=== PATIENT | male | born 1985 | race Asian ===

== ENCOUNTER 2018-04-18 12:26 | Emergency (ER) | payer BC ==
[2018-04-18 12:50] VITALS: BP 94/63
--- NOTE | 2018-04-18 13:06 | UC ---
Upper Extremity HPI - HPI Summary HPI Summary: He is a left handed male with left elbow pain. He points directly in the middle of the antecubital fosa. No acute injury or trauma. 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 It has been hurting more for the last 6mo. He works out daily but does not have pain during the workouts. It hurts more throwing and certain positions of the left arm. - History of Current Complaint Chief Complaint: UCUpperExtremity Stated Complaint: LEFT ELBOW PAIN Time Seen by Provider: 04/18/18 12:51 Hx Obtained From: Patient Onset/Duration: Gradual Onset, Lasting Weeks Severity Initially: Mild Severity Currently: Moderate Pain Intensity: 9 Location Of Pain: Is Discrete @ - anterior left elbow. Character: Aching Aggravating Factor(s): Other - certain positions. Alleviating Factor(s): Rest Associated Signs And Symptoms: Positive: Negative Related History: Dominant Hand Left - Allergies/Home Medications Allergies/Adverse Reactions: Allergies Allergy/AdvReac Type Severity Reaction Status Date / Time No Known Allergies Allergy Verified 04/18/18 12:47 Home Medications: Home Medications NK [No Home Medications Reported] 04/18/18 [History Confirmed 04/18/18] PMH/Surg Hx/FS Hx/Imm Hx Previously Healthy: Yes - Surgical History Surgical History: None - Family History Known Family History: Positive: Other - no related elbow disease in the family. - Social History Occupation: Student Alcohol Use: Rare Substance Use Type: None Smoking Status (MU): Never Smoked Tobacco Review of Systems Motor: Other - pain. All Other Systems Reviewed And Are Negative: Yes Physical Exam Triage Information Reviewed: Yes Appearance: Well-Appearing, No Pain Distress, Well-Nourished Vital Signs: Initial Vital Signs Temp 98.3 F 04/18/18 12:43 Pulse 55 04/18/18 12:43 Resp 15 04/18/18 12:43 BP 94/63 04/18/18 12:43 Pulse Ox 100 04/18/18 12:43 Vital Signs Reviewed: Yes Eyes: Positive: Conjunctiva Clear ENT: Positive: Normal ENT inspection Neck: Positive: Supple, Nontender, No Lymphadenopathy Respiratory: Positive: No accessory muscle use. Negative: Respiratory distress Cardiovascular: Positive: Brisk Capillary Refill Abdomen Description: Negative: Distended Musculoskeletal Exam: Other - Left elbow full rom, no deformity, bruising or swelling. There is no linda tenderness. Intact hook sign. No pain with valgus and varus stress. No pain with supination or pronation. Neurological: Positive: Alert, Muscle Tone Normal. Negative: Fatigued Psychological: Positive: Age Appropriate Behavior Upper Extremity Course/Dx - Course Course Of Treatment: This is not c/w tennis elbow, golfers elbow, biceps tendonitis, bursitis. He will f/u with Dr. motley. - Differential Dx/Diagnosis Provider Diagnoses: elbow pain. Discharge - Sign-Out/Discharge Documenting (check all that apply): Patient Departure - Discharge Plan Condition: Good Disposition: HOME Patient Education Materials: Elbow Sprain (ED) Referrals: No Primary Care Phys,NOPCP [Primary Care Provider] - Epi Motley MD [Medical Doctor] - - Billing Disposition and Condition Condition: GOOD Disposition: Home
== END 2018-04-18 13:04 | disposition home or self-care (01) ==
LOC: UCCORT 12:26
DX: M25.522 Pain in left elbow (principal)
CPT/HCPCS: 99211; G0463

== ENCOUNTER 2019-08-26 13:49 | Emergency (ER) | payer BC ==
[2019-08-26 14:16] VITALS: BP 130/85
--- NOTE | 2019-08-26 14:33 | UC ---
Dizzy HPI HPI Summary: Pt presents with c/o sudden onset of SMITH, dizziness, chest palpitations, after doing his morning workout. Pt states he began with a headache, he took a tylenol , ate lunch then began to feel nauseated and vomited several times. Pt states that he feels better now. Denies nausea, dizziness and chest palpitations, . Reports that he has a mild SMITH now. - History Of Current Complaint Chief Complaint: UCGeneralIllness Stated Complaint: DIZZY HEADACHE VOMITING HEART RACING Time Seen by Provider: 08/26/19 14:21 Hx Obtained From: Patient Onset/Duration: Sudden Onset, Lasting Minutes, Resolved Timing: Constant Severity Initially: Moderate Severity Currently: None Pain Intensity: 5 Character: Lightheaded, Dizzy Aggravating Factor(s): Headache Alleviating Factor(s): Rest Associated Signs And Symptoms: Positive: Nausea, Vomiting, Palpitations - Risk Factors Cardiac Risk Factors: Negative CVA Risk Factor: Negative - Allergies/Home Medications Allergies/Adverse Reactions: Allergies Allergy/AdvReac Type Severity Reaction Status Date / Time No Known Allergies Allergy Verified 08/26/19 13:56 Home Medications: Home Medications Baractamol 08/26/19 [History] Dymatize Protien Supplement 08/26/19 [History] Medication For Dormant Tb DAILY 08/26/19 [History] PMH/Surg Hx/FS Hx/Imm Hx Previously Healthy: Yes - Surgical History Surgical History: None Surgery Procedure, Year, and Place: DENIES - Family History Known Family History: Positive: Other - no related elbow disease in the family. - Social History Occupation: Employed Full-time Lives: With Family Alcohol Use: Rare Substance Use Type: None Smoking Status (MU): Never Smoked Tobacco Have You Smoked in the Last Year: No Review of Systems All Other Systems Reviewed And Are Negative: Yes Constitutional: Positive: Negative Skin: Positive: Negative Eyes: Positive: Negative ENT: Positive: Negative Respiratory: Positive: Negative Cardiovascular: Positive: Palpitations Gastrointestinal: Positive: Vomiting, Nausea Genitourinary: Positive: Negative Motor: Positive: Negative Neurovascular: Positive: Negative Musculoskeletal: Positive: Negative Neurological: Positive: Headache Psychological: Positive: Negative Is Patient Immunocompromised?: No Physical Exam - Summary Physical Exam Summary: Pt was sitting on exam bed a&o X 3 no one sided weakness, color was pink warm and dry. no neurological deficits. Triage Information Reviewed: Yes Appearance: Well-Appearing Vital Signs: Initial Vital Signs Temp 97.4 F 08/26/19 13:59 Pulse 75 08/26/19 13:59 Resp 16 08/26/19 13:59 BP 130/85 08/26/19 13:59 Pulse Ox 100 08/26/19 13:59 Vital Signs Reviewed: Yes ENT Exam: Normal ENT: Positive: Normal ENT inspection Dental Exam: Normal Neck exam: Normal Respiratory Exam: Normal Respiratory: Positive: Lungs clear, Normal breath sounds Cardiovascular Exam: Normal Cardiovascular: Positive: RRR, No Murmur Musculoskeletal Exam: Normal Musculoskeletal: Positive: Strength Intact, ROM Intact Neurological Exam: Normal Neurological: Positive: Alert, Muscle Tone Normal Psychological Exam: Normal Dizzy Course/Dx - Differential Dx/Diagnosis Differential Diagnosis/HQI/PQRI: Benign Paroxysmal Positional Vertigo, Vasovagal Reaction Provider Diagnosis: Nausea & vomiting, Palpitations, Dizziness Discharge ED - Sign-Out/Discharge Documenting (check all that apply): Patient Departure All imaging exams completed and their final reports reviewed: No Studies - Discharge Plan Condition: Stable Disposition: HOME Patient Education Materials: Acute Nausea and Vomiting (ED), Lightheadedness ( ED) Referrals: Zeina Hooks NP [Nurse Practitioner] - As Soon As Possible Additional Instructions: Please follow up with your PCP as soon as possible. If your symptoms return or worsen, please seek care at the closest emergency room. - Billing Disposition and Condition Condition: STABLE Disposition: Home
--- OUTSIDE RECORDS SUMMARY | 2019-08-26 14:46 | XMS REPORT | Continuity of Care Document ---
:1985 External Reference #:[id number] Author Name Lucille Mosher M.D. Address [address] [place] [address] Care Team Providers Name Role Phone Zeina Hooks, PNP-BC, [employer], Ibclc Care Team Information Conceptor - Family Problems Active Problems Provider Date Vitiligo Lucille Mosher M.D. Onset: 07/22/2019 Acute upper respiratory infection Lucille Mosher M.D. Onset: 06/24/2019 Elevated levels of transaminase & lactic acid Lucille Mosher M.D. Onset: 2018 dehydrogenase Benign paroxysmal positional vertigo Lucille Mosher M.D. Onset: 04/03/2019 Noncompliance with treatment Lucille Mosher M.D. Onset: 03/04/2019 Abnormal reaction to tuberculin test Lucille Mosher M.D. Onset: 01/30/2019 Hyperlipidemia Lucille Mosher M.D. Onset: 01/30/2019 Social History Type Date Description Comments Sex Unknown Tobacco Use Start: Unknown End: Former Cigarette Smoker 1-5 Unknown Cigarettes Daily Smoking Status Reviewed: 07/22/19 Former Cigarette Smoker 1-5 Cigarettes Daily ETOH Use Occasionally consumes alcohol Tobacco Use Start: Unknown End: Patient is a former smoker Unknown Recreational Drug Use Denies Drug Use Allergies, Adverse Reactions, Alerts Description No Known Drug Allergies Medications Active Medications SIG Qnty Indications Ordering Provider Date Ketoconazole apply daily to 60gm L21.9 Zeina Hooks, 05/01/2019 2% Cream arm pits for PNP-BC, [employer], Ibclc 4-6 weeks Isoniazid take one tab by 30tabs R76.11 Lucille Mosher M.D. 01/30/2019 300mg Tablets mouth daily x 30 days Pyridoxine HCL take one tab by 30tabs R76.11 Lucille Mosher M.D. 01/30/2019 50mg mouth daily x Tablets 30 days Immunizations CPT Code Status Date Vaccine Reaction Lot # 64881 Given 04/03/2019 Hepatitis B Vaccine Adult tolerated well, bandaid [id number] applied 79261 Given 03/04/2019 Hepatitis B Vaccine Adult tolerated well, banc aid [id number] applied 82604 Given 10/03/2018 Influenza Virus Vaccine, Quadrivalent, 36 Mos+, .5ML 43950 Given 02/05/2016 Tdap injection U-HepA Given 02/11/1994 Hepatitis A,Unspecified U-HepA Given 03/21/1993 Hepatitis A,Unspecified 81807 Given 01/15/1992 Varicella (Chicken Pox) Vaccine 69003 Given 11/16/1991 MMR Vaccine, Live, For Subcutaneous Use U-MCV4 Given 11/24/1989 Meningococcal MCV4,Unspecified 43133 Given 01/25/1988 MMR Vaccine, Live, For Subcutaneous Use 63632 Given 12/15/1987 Varicella (Chicken Pox) Vaccine U-HepB Given 11/11/1987 Hepatitis B,Unspecified U-HepB Given 07/01/1987 Hepatitis B,Unspecified U-HepB Given 04/22/1987 Hepatitis B,Unspecified Vital Signs Date Vital Result Comment 07/22/2019 3:51pm BP Systolic Sitting Left Arm 141 mmHg BP Diastolic Sitting Left Arm 95 mmHg Body Temperature 97.7 F Heart Rate 82 /min Height 67 inches 5'7" Weight 217.00 lb BMI (Body Mass Index) 34.0 kg/m2 BSA (Body Surface Area) 2.09 m2 [place] body weight in kilograms 67 kg 06/24/2019 3:58pm BP Systolic Sitting Left Arm 131 mmHg BP Diastolic Sitting Left Arm 85 mmHg Body Temperature 98.4 F Heart Rate 95 /min Height 67 inches 5'7" Weight 218.00 lb BMI (Body Mass Index) 34.1 kg/m2 BSA (Body Surface Area) 2.10 m2 [place] body weight in kilograms 67 kg Results Test Date Facility Test Result H/L Range Note CBC 07/15/2019 [facility] White Blood 10.5 K/uL Normal 3.4-10.5 1 W/Automated [address] [place] [address] [phone] Red Blood Count 5.90 M/uL High 4.20-5.80 Hemoglobin 16.7 gm/dL Normal 12.8-17.0 Hematocrit 47.2 % Normal 38.0-48.0 Mean Cell Volume 80.0 fl Normal 80.0-96.0 Mean Corpuscular HGB 28.3 pg Normal 27.0-33.0 Mean Corpuscular HGB Conc 35.4 g/dL Normal 31.7-36.0 Platelet Count 288 K/uL Normal 155-360 Red Cell Distri Width SD 35.7 fl Low 36-51 Red Cell Distri Width %CV 12.5 % Normal 11.6-15.8 Mean Platelet Volume 9.1 fl Normal 6.6-10.6 Neut% 65.0 % Normal 33.0-73.0 Lymph % 23.6 % Normal 20.0-42.0 [place] % 9.1 % Normal 0.0-10.0 Eo% 1.1 % Normal 0.0-6.6 Bas% 0.5 % Normal 0.0-1.1 Immature Grans 0.7 % Normal 0.0-5.0 NRBC % 0.0 /100WBC < 10/ 100 WBC Neut# 6.81 K/uL Normal 1.8-7.0 Lymph # 2.47 K/uL Normal 1.0-4.0 [place] # 0.95 K/uL High 0.0-0.8 Eos # 0.12 K/uL Normal 0.0-0.5 Baso # 0.05 K/uL Normal 0.0-0.1 Immature Grans Absolute 0.07 K/uL NRBC # 0.00 K/uL Comprehensive 07/15/2019 [facility] Glucose 98 mg/dL Normal 74-106 Metabolic Panel [address] [place] [address] [phone] BUN 21 mg/dL High 7-18 Creatinine 1.2 mg/dL Normal 0.6-1.3 Glom Filtration Rate, Estimate >60 mL/min >60 If >60 mL/min >60 2 BUN/Creat 17.5 ratio Sodium 138 mmol/L Normal 136-145 Potassium 3.8 mmol/L Normal 3.5-5.1 Chloride 105 mmol/L Normal 98-107 Carbon Dioxide 29 mmol/L Normal 21-32 Anion Gap 4 mEq/L Low 8-16 Calcium 9.1 mg/dL Normal 8.5-10.1 Total Protein 8.2 g/dL Normal 6.4-8.2 Albumin 4.3 g/dL Normal 3.4-5.0 Globulin 3.9 g/dL Normal 1.9-4.3 Alb/Glob 1.1 ratio Bilirubin,Total 0.5 mg/dL Normal 0.2-1.0 Sgot/Ast 27 U/L Normal 15-37 SGPT/Alt 52 U/L Normal 12-78 Alkaline Phosphatase 102 U/L Normal 45-117 Comprehensive 07/12/2019 [facility] Glucose 88 mg/dL Normal 74-106 3 Metabolic Panel [address] [place] [address] [phone] BUN 22 mg/dL High 7-18 Creatinine 1.2 mg/dL Normal 0.6-1.3 Glom Filtration Rate, Estimate >60 mL/min >60 If >60 mL/min >60 4 BUN/Creat 18.3 ratio Sodium 140 mmol/L Normal 136-145 Potassium 3.9 mmol/L Normal 3.5-5.1 Chloride 106 mmol/L Normal 98-107 Carbon Dioxide 30 mmol/L Normal 21-32 Anion Gap 4 mEq/L Low 8-16 Calcium 9.1 mg/dL Normal 8.5-10.1 Total Protein 7.6 g/dL Normal 6.4-8.2 Albumin 3.9 g/dL Normal 3.4-5.0 Globulin 3.7 g/dL Normal 1.9-4.3 Alb/Glob 1.1 ratio Bilirubin,Total 0.4 mg/dL Normal 0.2-1.0 Sgot/Ast 19 U/L Normal 15-37 SGPT/Alt 50 U/L Normal 12-78 Alkaline Phosphatase 97 U/L Normal 45-117 CBC W/Automated 06/17/2019 [facility] White Blood 10.5 K/uL Normal 3.4-10.5 [address] [place] [address] [phone] Red Blood Count 5.97 M/uL High 4.20-5.80 Hemoglobin 16.7 gm/dL Normal 12.8-17.0 Hematocrit 47.4 % Normal 38.0-48.0 Mean Cell Volume 79.4 fl Low 80.0-96.0 Mean Corpuscular HGB 28.0 pg Normal 27.0-33.0 Mean Corpuscular HGB Conc 35.2 g/dL Normal 31.7-36.0 Platelet Count 290 K/uL Normal 155-360 Red Cell Distri Width SD 34.9 fl Low 36-51 Red Cell Distri Width %CV 12.5 % Normal 11.6-15.8 Mean Platelet Volume 9.3 fl Normal 6.6-10.6 Neut% 57.1 % Normal 33.0-73.0 Lymph % 30.8 % Normal 20.0-42.0 [place] % 9.6 % Normal 0.0-10.0 Eo% 1.3 % Normal 0.0-6.6 Bas% 0.6 % Normal 0.0-1.1 Immature Grans 0.6 % Normal 0.0-5.0 NRBC % 0.0 /100WBC < 10/ 100 WBC Neut# 5.98 K/uL Normal 1.8-7.0 Lymph # 3.22 K/uL Normal 1.0-4.0 [place] # 1.00 K/uL High 0.0-0.8 Eos # 0.14 K/uL Normal 0.0-0.5 Baso # 0.06 K/uL Normal 0.0-0.1 Immature Grans Absolute 0.06 K/uL NRBC # 0.00 K/uL Comprehensive 06/17/2019 [facility] Glucose 77 mg/dL Normal 74-106 Metabolic Panel [address] [place] [address] [phone] BUN 19 mg/dL High 7-18 Creatinine 1.1 mg/dL Normal 0.6-1.3 Glom Filtration Rate, Estimate >60 mL/min >60 If >60 mL/min >60 6 BUN/Creat 17.2 ratio Sodium 140 mmol/L Normal 136-145 Potassium 3.9 mmol/L Normal 3.5-5.1 Chloride 107 mmol/L Normal 98-107 Carbon Dioxide 27 mmol/L Normal 21-32 Anion Gap 6 mEq/L Low 8-16 Calcium 9.1 mg/dL Normal 8.5-10.1 Total Protein 7.9 g/dL Normal 6.4-8.2 Albumin 4.1 g/dL Normal 3.4-5.0 Globulin 3.8 g/dL Normal 1.9-4.3 Alb/Glob 1.1 ratio Bilirubin,Total 0.4 mg/dL Normal 0.2-1.0 Sgot/Ast 48 U/L High 15-37 SGPT/Alt 60 U/L Normal 12-78 Alkaline Phosphatase 95 U/L Normal 45-117 CBC W/Automated 04/29/2019 [facility] White Blood 7.6 K/uL Normal 3.4-10.5 [address] Count [place], [place] [id number] [phone] Red Blood Count 5.84 M/uL High 4.20-5.80 Hemoglobin 16.3 gm/dL Normal 12.8-17.0 Hematocrit 46.2 % Normal 38.0-48.0 Mean Cell Volume 79.1 fl Low 80.0-96.0 Mean Corpuscular HGB 27.9 pg Normal 27.0-33.0 Mean Corpuscular HGB Conc 35.3 g/dL Normal 31.7-36.0 Platelet Count 271 K/uL Normal 155-360 Red Cell Distri Width SD 34.8 fl Low 36-51 Red Cell Distri Width %CV 12.4 % Normal 11.6-15.8 Mean Platelet Volume 9.6 fl Normal 6.6-10.6 Neut% 56.1 % Normal 33.0-73.0 Lymph % 34.4 % Normal 20.0-42.0 [place] % 6.0 % Normal 0.0-10.0 Eo% 1.9 % Normal 0.0-6.6 Bas% 0.8 % Normal 0.0-1.1 Immature Grans 0.8 % Normal 0.0-5.0 NRBC % 0.0 /100WBC < 10/ 100 WBC Neut# 4.25 K/uL Normal 1.8-7.0 Lymph # 2.60 K/uL Normal 1.0-4.0 [place] # 0.45 K/uL Normal 0.0-0.8 Eos # 0.14 K/uL Normal 0.0-0.5 Baso # 0.06 K/uL Normal 0.0-0.1 Immature Grans Absolute 0.06 K/uL NRBC # 0.00 K/uL Comprehensive Metabolic 04/29/2019 [facility] Glucose 126 mg/dL High 74-[address] [place] [address] [phone] BUN 19 mg/dL High 7-18 Creatinine 1.1 mg/dL Normal 0.6-1.3 Glom Filtration Rate, Estimate >60 mL/min >60 If >60 mL/min >60 8 BUN/Creat 17.2 ratio Sodium 141 mmol/L Normal 136-145 Potassium 3.8 mmol/L Normal 3.5-5.1 Chloride 107 mmol/L Normal 98-107 Carbon Dioxide 27 mmol/L Normal 21-32 Anion Gap 7 mEq/L Low 8-16 Calcium 9.1 mg/dL Normal 8.5-10.1 Total Protein 7.8 g/dL Normal 6.4-8.2 Albumin 3.8 g/dL Normal 3.4-5.0 Globulin 4.0 g/dL Normal 1.9-4.3 Alb/Glob 1.0 ratio Bilirubin,Total 0.5 mg/dL Normal 0.2-1.0 Sgot/Ast 28 U/L Normal 15-37 SGPT/Alt 50 U/L Normal 12-78 Alkaline Phosphatase 85 U/L Normal 45-117 CBC W/Automated 03/29/2019 [facility] White Blood 6.9 K/uL Normal 3.4-10.[address] [place] [address] [phone] Red Blood Count 5.81 M/uL High 4.20-5.80 Hemoglobin 16.0 gm/dL Normal 12.8-17.0 Hematocrit 46.5 % Normal 38.0-48.0 Mean Cell Volume 80.0 fl Normal 80.0-96.0 Mean Corpuscular HGB 27.5 pg Normal 27.0-33.0 Mean Corpuscular HGB Conc 34.4 g/dL Normal 31.7-36.0 Platelet Count 266 K/uL Normal 155-360 Red Cell Distri Width SD 35.1 fl Low 36-51 Red Cell Distri Width %CV 12.4 % Normal 11.6-15.8 Mean Platelet Volume 9.1 fl Normal 6.6-10.6 Neut% 49.1 % Normal 33.0-73.0 Lymph % 36.7 % Normal 20.0-42.0 [place] % 9.9 % Normal 0.0-10.0 Eo% 2.9 % Normal 0.0-6.6 Bas% 0.7 % Normal 0.0-1.1 Immature Grans 0.7 % Normal 0.0-5.0 NRBC % 0.0 /100WBC < 10/ 100 WBC Neut# 3.36 K/uL Normal 1.8-7.0 Lymph # 2.52 K/uL Normal 1.0-4.0 [place] # 0.68 K/uL Normal 0.0-0.8 Eos # 0.20 K/uL Normal 0.0-0.5 Baso # 0.05 K/uL Normal 0.0-0.1 Immature Grans Absolute 0.05 K/uL NRBC # 0.00 K/uL Comprehensive 03/29/2019 [facility] Glucose 104 mg/dL Normal 74-106 Metabolic Panel [address] [place] [address] [phone] BUN 22 mg/dL High 7-18 Creatinine 1.3 mg/dL Normal 0.6-1.3 Glom Filtration Rate, Estimate >60 mL/min >60 If >60 mL/min >60 9 BUN/Creat 16.9 ratio Sodium 139 mmol/L Normal 136-145 Potassium 4.1 mmol/L Normal 3.5-5.1 Chloride 108 mmol/L High 98-107 Carbon Dioxide 25 mmol/L Normal 21-32 Anion Gap 6 mEq/L Low 8-16 Calcium 9.1 mg/dL Normal 8.5-10.1 Total Protein 7.5 g/dL Normal 6.4-8.2 Albumin 3.7 g/dL Normal 3.4-5.0 Globulin 3.8 g/dL Normal 1.9-4.3 Alb/Glob 1.0 ratio Bilirubin,Total 0.6 mg/dL Normal 0.2-1.0 Sgot/Ast 28 U/L Normal 15-37 SGPT/Alt 48 U/L Normal 12-78 Alkaline Phosphatase 94 U/L Normal 45-117 Quantiferon Client 03/04/2019 [facility] QuantiFERON (SEE NOTE) [address] [place] [address] [phone] QuantiFERON TB1 Ag Value 2.51 IU/mL . QuantiFERON TB2 Ag Value 3.01 IU/mL . QuantiFERON Nil Value 0.10 IU/mL . QuantiFERON Mitogen Value > 10.00 IU/mL . QuantiFERON TB Gold Interpret Positive Abnormal Negative 11 CBC W/Automated 01/30/2019 [facility] White Blood 8.5 K/uL Normal 3.4-10.[address] Count [place], [place] [id number] [phone] Red Blood Count 5.68 M/uL Normal 4.20-5.80 Hemoglobin 16.0 gm/dL Normal 12.8-17.0 Hematocrit 45.7 % Normal 38.0-48.0 Mean Cell Volume 80.5 fl Normal 80.0-96.0 Mean Corpuscular HGB 28.2 pg Normal 27.0-33.0 Mean Corpuscular HGB Conc 35.0 g/dL Normal 31.7-36.0 Platelet Count 286 K/uL Normal 155-360 Red Cell Distri Width SD 35.1 fl Low 36-51 Red Cell Distri Width %CV 12.3 % Normal 11.6-15.8 Mean Platelet Volume 9.5 fl Normal 6.6-10.6 Neut% 48.7 % Normal 33.0-73.0 Lymph % 38.9 % Normal 20.0-42.0 [place] % 9.2 % Normal 0.0-10.0 Eo% 2.0 % Normal 0.0-6.6 Bas% 0.7 % Normal 0.0-1.1 Immature Grans 0.5 % Normal 0.0-5.0 NRBC % 0.0 /100WBC < 10/ 100 WBC Neut# 4.12 K/uL Normal 1.8-7.0 Lymph # 3.29 K/uL Normal 1.0-4.0 [place] # 0.78 K/uL Normal 0.0-0.8 Eos # 0.17 K/uL Normal 0.0-0.5 Baso # 0.06 K/uL Normal 0.0-0.1 Immature Grans Absolute 0.04 K/uL NRBC # 0.00 K/uL Comprehensive 01/30/2019 [facility] Glucose 85 mg/dL Normal 74-106 Metabolic Panel [address] [place], [place] [id number] [phone] BUN 22 mg/dL High 7-18 Creatinine 1.2 mg/dL Normal 0.6-1.3 Glom Filtration Rate, Estimate >60 mL/min >60 If >60 mL/min >60 12 BUN/Creat 18.3 ratio Sodium 139 mmol/L Normal 136-145 Potassium 4.1 mmol/L Normal 3.5-5.1 Chloride 106 mmol/L Normal 98-107 Carbon Dioxide 32 mmol/L Normal 21-32 Anion Gap 1 mEq/L Low 8-16 Calcium 8.9 mg/dL Normal 8.5-10.1 Total Protein 7.4 g/dL Normal 6.4-8.2 Albumin 3.9 g/dL Normal 3.4-5.0 Globulin 3.5 g/dL Normal 1.9-4.3 Alb/Glob 1.1 ratio Bilirubin,Total 0.5 mg/dL Normal 0.2-1.0 Sgot/Ast 25 U/L Normal 15-37 SGPT/Alt 52 U/L Normal 12-78 Alkaline Phosphatase 98 U/L Normal 45-117 Laboratory test 01/30/2019 [facility] Hepatitis C < 0.1 0.0-0.[address] Antibody s/[place] [address] [phone] Hepatitis A Antibody -IgM Negative Negative Hepatitis B Surface Antibody Non Reactive . 14 Hepatitis A AB, Total POSITIVE Abnormal Negative 15 HIV Screen 01/30/2019 [facility] HIV Screen 4th Non Reactive Non Reactive [address] [place] [address] [phone] 1 R76.11 2 Note: Persistent reduction for 3 months or more in an eGFR <60 mL/min/1.73 m2 defines CKD. Patients with eGFR values >/=60 mL/min/1.73 m2 may also have CKD if evidence of persistent proteinuria is present. The original MDRD equation for estimated GFR is not valid for patients less than 18 years of age. Additional information may be found at www.[email or web address]. 3 R74.0 4 Note: Persistent reduction for 3 months or more in an eGFR <60 mL/min/1.73 m2 defines CKD. Patients with eGFR values >/=60 mL/min/1.73 m2 may also have CKD if evidence of persistent proteinuria is present. The original MDRD equation for estimated GFR is not valid for patients less than 18 years of age. Additional information may be found at www.[email or web address]. 5 NO ORDER HERE YET 6 Note: Persistent reduction for 3 months or more in an eGFR <60 mL/min/1.73 m2 defines CKD. Patients with eGFR values >/=60 mL/min/1.73 m2 may also have CKD if evidence of persistent proteinuria is present. The original MDRD equation for estimated GFR is not valid for patients less than 18 years of age. Additional information may be found at www.[email or web address]. 7 R76.11 8 Note: Persistent reduction for 3 months or more in an eGFR <60 mL/min/1.73 m2 defines CKD. Patients with eGFR values >/=60 mL/min/1.73 m2 may also have CKD if evidence of persistent proteinuria is present. The original MDRD equation for estimated GFR is not valid for patients less than 18 years of age. Additional information may be found at www.[email or web address]. 9 Note: Persistent reduction for 3 months or more in an eGFR <60 mL/min/1.73 m2 defines CKD. Patients with eGFR values >/=60 mL/min/1.73 m2 may also have CKD if evidence of persistent proteinuria is present. The original MDRD equation for estimated GFR is not valid for patients less than 18 years of age. Additional information may be found at www.[email or web address]. 10 The QuantiFERON-TB Gold Plus result is determined by subtracting the Nil value from either TB antigen (Ag) tube. The mitogen tube serves as a control for the test. 11 The specimen received for QuantiFERON testing was incubated by the ordering institution. Specific procedures outlined in our Directory of Services and in the package insert for the QuantiFERON Gold (In Tube) test must be followed to enable for proper stimulation of cells for the production of interferon gamma. Performed at: RN - [facility] [id number] [employer]: Anna Chu MD, Phone: [phone] 12 Note: Persistent reduction for 3 months or more in an eGFR <60 mL/min/1.73 m2 defines CKD. Patients with eGFR values >/=60 mL/min/1.73 m2 may also have CKD if evidence of persistent proteinuria is present. The original MDRD equation for estimated GFR is not valid for patients less than 18 years of age. Additional information may be found at www.[email or web address]. 13 INFCE Result Units: s/co ratio Negative: < 0.8 Indeterminate: 0.8 - 0.9 Positive: > 0.9 The CDC recommends that a positive HCV antibody result be followed up with a HCV Nucleic Acid Amplification test (834243). Performed at: [address] [id number] [employer]: Anna Chu MD, Phone: [phone] 14 Non Reactive: Inconsistent with immunity, less than 10 mIU/mL Reactive: Consistent with immunity, greater than 9.9 mIU/mL 15 Performed at: [address] [id number] [employer]: Anna Chu MD, Phone: [phone] 16 Performed at: [address] [id number] [employer]: Anna Chu MD, Phone: [phone] Procedures Description No Information Available Medical Devices Description No Information Available Encounters Type Date Location Provider Dx Diagnosis Office Visit 07/22/2019 Physical Medicine Lucille Mosher [email or web address].Miguel Nonspecific 4:00p & Infectious M.D. 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 reaction to skin Disease test w/o active tuberculosis E78.5 Hyperlipidemia, unspecified H81.10 Benign paroxysmal vertigo, unspecified ear Office Visit 05/01/2019 9:45a Family Medicine Zeina Brumfield, L[address] PNP-BC, [employer], Ibclc L21.9 Seborrheic dermatitis, unspecified Office Visit 04/03/2019 1:30p Physical Medicine Lucille Mosher, R76.11 Nonspecific & Infectious M.D. reaction to skin Disease test w/o active tuberculosis E78.5 Hyperlipidemia, unspecified H81.10 Benign paroxysmal vertigo, unspecified ear Z91.14 Patient's other noncompliance with medication regimen Z23 Encounter for immunization Office Visit 03/04/2019 3:30p Physical Medicine Lucille Mosher, R76.11 Nonspecific & Infectious M.D. reaction to skin Disease test w/o active tuberculosis E78.5 Hyperlipidemia, unspecified H81.10 Benign paroxysmal vertigo, unspecified ear Z91.14 Patient's other noncompliance with medication regimen Z23 Encounter for immunization Office Visit 01/30/2019 1:15p Physical Medicine Lucille Mosher, R76.11 Nonspecific & Infectious M.D. reaction to skin Disease test w/o active tuberculosis E78.5 Hyperlipidemia, unspecified H81.10 Benign paroxysmal vertigo, unspecified ear Assessments Date Code Description Provider 07/22/2019 R76.11 Nonspecific reaction to tuberculin Lucille Mosher, M.D. skin test without active 07/22/2019 R74.0 Nonspecific elevation of levels of Lucille Mosher, M.D. transaminase and lactic acid dehydrogenase [LDH] 07/22/2019 E78.5 Hyperlipidemia, unspecified Lucille Mosher, M.D. 07/22/2019 L80 Vitiligo Lucille Mosher, M.D. 06/24/2019 R76.11 Nonspecific reaction to tuberculin Lucille Mosher, M.D. skin test without active 06/24/2019 R74.0 Nonspecific elevation of levels of Lucille Mosher, M.D. transaminase and lactic acid dehydrogenase [LDH] 06/24/2019 E78.5 Hyperlipidemia, unspecified Meheraclio, Lucille, M.D. 06/24/2019 J06.9 Acute upper respiratory infection, Lucille Mosher M.D. unspecified 05/23/2019 R76.11 Nonspecific reaction to tuberculin Lucille Mosher, M.D. skin test without active 05/23/2019 E78.5 Hyperlipidemia, unspecified Lucille Mosher M.D. 05/23/2019 H81.10 Benign paroxysmal vertigo, Lucille Mosher M.D. unspecified ear 05/01/2019 L80 Vitiligo Zeina Hooks, SAYBC, [employer], Ibclc 05/01/2019 L21.9 Seborrheic dermatitis, unspecified Zeina Hooks PNP-BC, [employer], Ibclc 04/03/2019 R76.11 Nonspecific reaction to tuberculin Lucille Mosher M.D. skin test without active 04/03/2019 E78.5 Hyperlipidemia, unspecified Lucille Mosher M.D. 04/03/2019 H81.10 Benign paroxysmal vertigo, Lucille Mosher M.D. unspecified ear 04/03/2019 Z91.14 Patient's other noncompliance with Lucille Mosher M.D. medication regimen 04/03/2019 Z23 Encounter for immunization Lucille Mosher M.D. 03/04/2019 R76.11 Nonspecific reaction to tuberculin Lucille Mosher M.D. skin test without active 03/04/2019 E78.5 Hyperlipidemia, unspecified Lucille Mosher M.D. 03/04/2019 H81.10 Benign paroxysmal vertigo, Lucille Mosher M.D. unspecified ear 03/04/2019 Z91.14 Patient's other noncompliance with Lucille Mosher M.D. medication regimen 03/04/2019 Z23 Encounter for immunization Lucille Mosher M.D. 01/30/2019 R76.11 Nonspecific reaction to tuberculin Lucille Mosher M.D. skin test without active 01/30/2019 E78.5 Hyperlipidemia, unspecified Lucille Mosher M.D. 01/30/2019 H81.10 Benign paroxysmal vertigo, Lucille Mosher M.D. unspecified ear Plan of Treatment Future Appointment(s):09/04/2019 1:30 pm - Lucille Mosher M.D. at [id number]/22/2019 - Lucille Mosher M.D.R76.11 Nonspecific reaction to tuberculin skin test without activeFollow up:1 month with lab work.R74.0 Nonspecific elevation of levels of transaminase and lactic acid dehydrogenase [LDH]E78.5 Hyperlipidemia, [id number] Vitiligo Functional Status Functional Condition Comment Date Status Independent with all ADL's Active Mental Status Description No Information Available Referrals Refer to Dr Reason for Referral Status Appt Date Sandee Kirkland MD [facility] Closed 07/03/[address] [place] [address] [phone]
== END 2019-08-26 14:44 | disposition home or self-care (01) ==
LOC: UCCORT 13:49
DX: R11.2 Nausea with vomiting, unspecified (principal); R00.2 Palpitations; R42 Dizziness and giddiness
CPT/HCPCS: 93005; 99211; G0463